=== PATIENT | male | born 1940 | race Caucasian/White ===

== ENCOUNTER 2017-04-03 14:20 | Emergency (ER) | payer OTHER, BC ==
--- NOTE | 2017-04-03 15:06 | EDPHY ---
H & P Time Seen by Provider: 04/03/17 15:05 HPI/ROS: CHIEF COMPLAINT: Anxiety HISTORY OF PRESENT ILLNESS: This patient is a 77 year old male referred to the Emergency Department by his PCP, Dr. Hernandez, for evaluation of acute anxiety. He reports a variety of stressful interpersonal events precipitating his anxiety. He recently received a domestic violence and assault charge, which he believes was unfounded, and was just dismissed from [facility] on Saturday. Upon arrival, he describes feeling "overwhelmed" and "unable to cope." He denies thoughts of suicide or self harm. No homicidal ideation or hallucinations. He has no additional complaints. Denies any pertinent medical history. REVIEW OF SYSTEMS: Constitutional: No fever, no chills Eyes: No visual changes ENT: No sore throat Respiratory: No cough, no shortness of breath Cardiac: No chest pain Gastrointestinal: No nausea, no vomiting, no abdominal pain Genitourinary: No hematuria, no dysuria Musculoskeletal: No leg pain or swelling Skin: No rash Neurological: No headache, no numbness, no weakness Psychiatric: As in HPI Past Medical/Surgical History: Lumbar spine compression, hernia, shoulder repair, irregular heart beat. 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 Smoking Status: Never smoked Physical Exam: General Appearance: Alert, no distress Eyes: Pupils equal and round, no conjunctival pallor or injection ENT, Mouth: Mucous membranes moist Neck: Normal inspection Respiratory: Lungs are clear to auscultation Cardiovascular: Regular rate and rhythm Gastrointestinal: Abdomen is soft and non- tender Neurological: A&O, nonfocal, normal gait Skin: Warm and dry, no rash Extremities: Nontender, no pedal edema Psychiatric: Anxious affect Constitutional: Initial Vital Signs Temperature (C) 36.8 C 04/03/17 14:23 Heart Rate 54 L 04/03/17 14:23 Respiratory Rate 18 04/03/17 14:23 Blood Pressure 128/73 H 04/03/17 14:23 O2 Sat (%) 96 04/03/17 14:23 O2 Delivery Mode Room Air Allergies/Adverse Reactions: CATS, HORSES Allergy (Mild, Uncoded 09/20/14 15:51) RUNNY NOSE Home Medications: Medication Instructions Recorded Bystolic 04/03/17 Finasteride 04/03/17 HCTZ (*) 04/03/17 Lisinopril 04/03/17 Zolpidem Tartrate [Ambien 5MG (*)] 5 mg PO HS #10 tab 04/03/17 Medical Decision Making ED Course/Re-evaluation: This 77-year-old male presents with acute anxiety secondary to increased stress surrounding recent life events including brief incarceration at [facility]. He was referred to the ED by his primary care provider for mental health evaluation. He is agreeable and conversant upon presentation. His exam is benign apart from a mildly anxious affect. He has no history of mental health diagnoses. Will proceed with labs and UA to ensure that the patient is medically cleared prior to mental health evaluation. I discussed this treatment plan with the patient who is agreeable to this. 1628: Labs and UA obtained and are within normal limits. Tox screen is negative. The patient is medically cleared for psychiatric evaluation. This patient was seen by mental health and cleared for outpatient treatment of anxiety. I agree with this assessment. A prepack of Ativan was given. I also wrote a prescription for Ambien for him. Differential Diagnosis: The differential diagnosis for the patient's anxiety included but was not limited to: generalized anxiety disorder, panic disorder, functional and major depression, situational depression, medication side effect, drugs, and alcohol abuse. - Data Points Laboratory Results: Laboratory Results 04/03/17 15:28 04/03/17 15:28 04/03/17 04/03/17 04/03/17 15:28 15:28 15:20 WBC 7.65 10^3/uL 10^3/uL (3.80-9.50) RBC 4.96 10^6/uL 10^6/uL (4.40-6.38) Hgb 14.7 g/dL g/dL (13.7-17.5) Hct 43.8 % % (40.0-51.0) MCV 88.3 fL fL (81.5-99.8) MCH 29.6 pg pg (27.9-34.1) MCHC 33.6 g/dL g/dL (32.4-36.7) RDW 11.9 % % (11.5-15.2) Plt Count 174 10^3/uL 10^3/uL (150-400) MPV 11.2 fL fL (8.7-11.7) Neut % (Auto) 59.4 % % (39.3-74.2) Lymph % (Auto) 28.5 % % (15.0-45.0) [place] % (Auto) 9.5 % % (4.5-13.0) Eos % (Auto) 1.8 % % (0.6-7.6) Baso % (Auto) 0.5 % % (0.3-1.7) Nucleat RBC Rel Count 0.0 % % (0.0-0.2) Absolute Neuts (auto) 4.54 10^3/uL 10^3/uL (1.70-6.50) Absolute Lymphs (auto) 2.18 10^3/uL 10^3/uL (1.00-3.00) Absolute Monos (auto) 0.73 10^3/uL 10^3/uL (0.30-0.80) Absolute Eos (auto) 0.14 10^3/uL 10^3/uL (0.03-0.40) Absolute Basos (auto) 0.04 10^3/uL 10^3/uL (0.02-0.10) Absolute Nucleated RBC 0.00 10^3/uL 10^3/uL (0-0.01) Immature Gran % 0.3 % % (0.0-1.1) Immature Gran # 0.02 10^3/uL 10^3/uL (0.00-0.10) Sodium 138 mEq/L mEq/L (134-144) Potassium 4.5 mEq/L mEq/L (3.5-5.2) Chloride 100 mEq/L mEq/L (97-110) Carbon Dioxide 28 mEq/l mEq/l (22-31) Anion Gap 10 mEq/L mEq/L (8-16) BUN 23 mg/dL mg/dL (7-23) Creatinine 1.1 mg/dL mg/dL (0.7-1.3) Estimated GFR > 60 Glucose 77 mg/dL mg/dL (70-100) Calcium 9.7 mg/dL mg/dL (8.5-10.4) Urine Opiates Screen NEGATIVE (NEGATIVE) Urine Barbiturates NEGATIVE (NEGATIVE) Ur Phencyclidine Scrn NEGATIVE (NEGATIVE) Ur Amphetamine Screen NEGATIVE (NEGATIVE) U Benzodiazepines Scrn NEGATIVE (NEGATIVE) Urine Cocaine Screen NEGATIVE (NEGATIVE) U Marijuana (THC) Screen NEGATIVE (NEGATIVE) Ethyl Alcohol < 10 mg/dL mg/dL (0-10) Medications Given: Discontinued Medications Lorazepam (Ativan 1 Mg Prepack#4) 1 btl TAKEHOME EDNOW ONE Stop: 04/03/17 19:48 Last Admin: 04/03/17 19:55 Dose: 1 btl Departure - Departure Disposition: Home, Routine, Self-Care Clinical Impression: Anxiety Condition: Good Instructions: Lorazepam (By mouth), Anxiety (ED) Additional Instructions: Follow-up with mental health as suggested. Take Ativan 1 tablet every 12 hours as needed for anxiety. Referrals: Lorelei Hernandez MD [Primary Care Provider] - As per Instructions Prescriptions: Zolpidem Tartrate [Ambien 5MG (*)] 5 mg PO HS #10 tab Report Scribed for: Juliann Cruz Report Scribed by: Lauren Sánchez Date of Report: 04/03/17 Time of Report: 15:06 Physician Review and Approval Statement: 04/03/17 15:06 Portions of this note were transcribed by a certified ophthalmic medical technician. I personally performed a history, physical exam, medical decision making, and confirmed accuracy of information the transcribed note.
[2017-04-03 15:43] LABS: % IMMATURE GRANULYOCYTES 0.3 % (0.0-1.1); ABSOLUTE IMMATURE GRANULOCYTES 0.02 10^3/uL (0.00-0.10); ADD DIFF? NO; ADD MORPH? NO; ADD SCAN? NO; ATYPICAL LYMPHOCYTE FLAG 20 (0-99); FRAGMENT RBC FLAG 10 (0-99); HEMATOCRIT 43.8 % (40.0-51.0); HEMOGLOBIN 14.7 g/dL (13.7-17.5); LEFT SHIFT FLG 0 (0-99); LIPEMIA HEMOLYSIS FLAG 80 (0-99); MEAN CELL HEMOGLOBIN 29.6 pg (27.9-34.1); MEAN CELL HEMOGLOBIN CONCENTR. 33.6 g/dL (32.4-36.7); MEAN CELL VOLUME 88.3 fL (81.5-99.8); MEAN PLATELET VOLUME 11.2 fL (8.7-11.7); PLATELET CLUMPS FLAG 10 (0-99); PLATELET COUNT 174 10^3/uL (150-400); RED BLOOD CELL COUNT 4.96 10^6/uL (4.40-6.38); RED CELL DISTRIBUTION WIDTH 11.9 % (11.5-15.2)
[2017-04-03 15:52] LABS: ANION GAP 10 mEq/L (8-16); CALCIUM 9.7 mg/dL (8.5-10.4); CARBON DIOXIDE 28 mEq/l (22-31); CHLORIDE 100 mEq/L (97-110); CREATININE 1.1 mg/dL (0.7-1.3); ETHANOL SERUM < 10 mg/dL (0-10); GLOMERULAR FILTRATION RATE > 60; GLUCOSE 77 mg/dL (70-100); POTASSIUM 4.5 mEq/L (3.5-5.2); SODIUM 138 mEq/L (134-144)
[2017-04-03 17:45] VITALS: RESP 16
[2017-04-03] MEDS ORDERED: LORAZEPAM 1 MG PREPACK#4 BTL TAKEHOME ONE (19:47)
[2017-04-03 20:06] VITALS: BP 147/82; PULSE 57; TEMP 98.1; O2SAT 93
== END 2017-04-03 20:06 | disposition home or self-care (01) ==
DX: F41.9 Anxiety disorder, unspecified (principal)
CPT/HCPCS: 80305; G0480